=== PATIENT | female | born 1990 | race Native Hawaiian/Other Pacific Islander ===

== ENCOUNTER 2018-08-23 16:58 | Outpatient (CLI) | payer OTHER ==
[~2018-08-23 16:58] MED LIST: ALPR0.5T24 PO; AMOX875T8 PO; FLOXIN OT; GABA300C2 PO; LORA10TA3 PO; MEDROL DOSEPAK4 MG OR; PROAIR HFA IN; SEROQUEL200 MG OR; TOPAMAX50 MG OR; TRAZ100T PO; WELLBUTRIN100 M1 PO
[2018-08-23 17:18] LABS: PLATELET COUNT 240 K/uL (152-353)
== END 2018-08-23 23:52 | disposition home or self-care (01) ==
LOC: LABW 16:58
PROVIDERS: Physician Assistant
DX: D64.9 Anemia, unspecified (principal); R31.9 Hematuria, unspecified
CPT/HCPCS: 36415; 81000; 85027

== ENCOUNTER 2018-10-10 08:46 | Outpatient (CLI) | payer OTHER ==
[2018-10-10 09:28] LABS: PLATELET COUNT 230 K/uL (152-353)
== END 2018-10-10 19:55 | disposition home or self-care (01) ==
LOC: LABW 08:46
PROVIDERS: Specialist
DX: M25.50 Pain in unspecified joint (principal); M62.81 Muscle weakness (generalized); R20.9 Unspecified disturbances of skin sensation
CPT/HCPCS: 36415; 80053; 85027; 85651; 86038

== ENCOUNTER 2018-12-03 11:23 | Emergency (ER) | payer OTHER ==
[~2018-12-03] VITALS: Ht 154.9 cm; Wt 73.9 kg
[2018-12-03] MEDS ORDERED: WELLBUTRIN100 M1 PO (11:49)
[2018-12-03] MEDS ORDERED: HYDR10TA10 PO (11:49)
[2018-12-03 13:41] VITALS: BP 132/75; TEMP 99
== END 2018-12-03 13:41 | disposition home or self-care (01) ==
LOC: ED 11:23
DX: M47.894 Other spondylosis, thoracic region (principal); M79.18 Myalgia, other site
CPT/HCPCS: 81000; 99283

== ENCOUNTER 2019-09-07 12:28 | Outpatient (CLI) | payer OTHER ==
[~2019-09-07 12:28] MED LIST changes: +HYDR10TA10 PO
== END 2019-09-07 20:01 | disposition home or self-care (01) ==
LOC: LAB 12:28
DX: R06.00 Dyspnea, unspecified (principal); Z87.09 Personal history of other diseases of the respiratory system; F17.200 Nicotine dependence, unspecified, uncomplicated
CPT/HCPCS: 36415; 82103; 82104; 82785

== ENCOUNTER 2019-10-03 09:25 | Outpatient (CLI) | payer OTHER | END 2019-10-03 21:06 | disposition home or self-care (01) | LOC: LABW 09:25 | DX: D35.2 Benign neoplasm of pituitary gland (principal) | CPT/HCPCS: 36415; 82024; 82533; 82565; 83001; 83002; 83003; 84146; 84305; 84439; 84443; 84480; 84520 ==

== ENCOUNTER 2022-03-07 16:15 | Emergency (ER) | payer OTHER ==
[~2022-03-07] VITALS: Ht 154.9 cm; Wt 91.6 kg
[2022-03-07 17:17] VITALS: BP 118/67; TEMP 97.2
== END 2022-03-07 17:17 | disposition home or self-care (01) ==
LOC: ED 16:15
DX: L03.313 Cellulitis of chest wall (principal); L30.9 Dermatitis, unspecified
CPT/HCPCS: 96372; 99283; J0696

== ENCOUNTER 2022-03-22 14:52 | Outpatient (CLI) | payer OTHER | END 2022-03-22 23:23 | disposition home or self-care (01) | LOC: MRI 14:52 | PROVIDERS: ATTEND Psychiatry & Neurology Neurology | DX: G43.019 Migraine without aura, intractable, without status migrainosus (principal); E23.7 Disorder of pituitary gland, unspecified; R41.0 Disorientation, unspecified | CPT/HCPCS: A9576 ==